=== PATIENT | male | born 1960 | race Caucasian/White ===

== ENCOUNTER → 2017-07-11 | Day surgery (SDC) | payer BC ==
[~2017-07-11] MED LIST: ASPI-630 PO; HYDROmorphone 2 MG/ML VIAL IV PRN; IV RINGERS,LACTATED 1000ML 1,000 ML IV SCH; LIDOCAINE 1% PF 2 ML VIAL. ID PRN; LIDOCAINE 2% PF Vial for OR 5 ML VIAL. ONE; MORPHINE SULFATE 2 MG/ML DISP.SYRIN. IV PRN; ONDANSETRON PF 4 MG/2 ML VIAL. IV PRN; PROCHLORPERAZINE 10 MG/2 ML VIAL. IV PRN; PROPOFOL 40 ML IV ONE; fentaNYL PF VIAL 100 MCG/2 ML VIAL IV PRN
[2017-07-11 09:10] VITALS: BP 134/90
--- NOTE | 2017-07-11 12:53 | CONS ---
DATE OF CONSULTATION: 07/11/2017 DATE OF SERVICE: 07/11/2017 REFERRING PHYSICIAN: Dr. hTor Moe. HISTORY OF PRESENT ILLNESS: A 56-year-old male whose past medical history is significant for colonic polyps and asthma, seen for surveillance exam. He had a history of polyps some 5 years ago, which were hyperplastic in nature and he is here today for surveillance exam. Bowel habits are regular without diarrhea or constipation. No melena or hematochezia. He has no additional complaints. FAMILY HISTORY: Unrevealing for colon cancer. PAST MEDICAL HISTORY: Asthma, history of colonic polyps. ALLERGIES: None. MEDICATIONS: Aspirin 81 mg daily. FAMILY AND SOCIAL HISTORY: He is a social drinker, a former smoker. PAST SURGICAL HISTORY: Status post eye surgery, right leg fracture. REVIEW OF SYSTEMS: Per records. PHYSICAL EXAMINATION: GENERAL: Reveals a well-nourished, well-developed male who is alert, conversant, in no acute distress. VITAL SIGNS: Temperature 97.1, pulse 96, respirations 20. HEENT: Normocephalic and atraumatic head. Pupils and extraocular movements not tested. Sclerae anicteric. NECK: Supple. LUNGS: Clear. CARDIOVASCULAR: Reveals S1, S2 without S3, S4 or appreciable murmur. ABDOMEN: Soft abdomen, normal bowel sounds, without appreciable hepatosplenomegaly. EXTREMITIES: Reveals no cyanosis, clubbing or edema. IMPRESSION: History of colonic polyps. Surveillance exam is warranted at this time. Risks and benefits of procedure have been discussed with the patient and he is willing to proceed. REJI ROTH MD DR: MARE/luis m JOB#: [id number] / [id number]
--- NOTE | 2017-07-12 13:21 | PATHOLOGY ---
PATHOLOGY REPORT * * * * * * * * FINAL DIAGNOSIS: A. Colorectal biopsies, rectal polyps: - Hyperplastic polyps. B. Colon biopsies, sigmoid colon polyps: - Hyperplastic polyps. (JPM:pit; 07/12/2017) COMMENT: There are no adenomatous changes or evidence of malignancy. (JPM:pit; 07/12/2017) REPORT ELECTRONICALLY SIGNED BY: Giovanny Randolph M.D. DATE/TIME: 07/12/2017 13:20 * * * * * * * * GROSS PATHOLOGY: A. Received in formalin labeled "Spencer Caruso, rectal polyps," are 4 segments of antony soft tissue measuring 1.4 x 0.6 x 0.5 cm in aggregate dimensions and ranging from 0.2 to 0.6 cm in maximum dimension. The specimen is submitted entirely in cassette A1. B. Received in formalin labeled "Spencer Caruso, sigmoid colon polyps," are 4 segments of antony soft tissue measuring 1.1 x 0.6 x 0.4 cm in aggregate dimensions and ranging from 0.2 to 0.4 cm in maximum dimension. The specimen is submitted entirely in cassette C1. (TSD; 07/11/2017) INITIAL CPT CODE(S): A; 10577 B; 14329 Professional services performed by [facility] [place] [address] Technical services performed by [facility] at [address] [place] [address] [address] [address]. SPECIMEN(S) RECEIVED: A.Rectal polyps B.Sigmoid colon polyps CLINICAL HISTORY: Screening PATIENT: SPENCER CARUSO /AGE: 312/08/1960 (Age: 56) PATIENT #: [id number] ALT CASE #: SPECIMEN COLLECTION DATE: 07/11/2017 SPECIMEN RECEIVED DATE: 07/11/2017 [facility] - [id number] [place] [address] - PHONE: [phone] * * * END OF REPORT * * *
== END | disposition home or self-care (01) ==
LOC: ENDOS 07:15
PROVIDERS: ATTEND Internal Medicine Gastroenterology
DX: Z09 Encounter for follow-up examination after completed treatment for conditions other than malignant neoplasm (principal); Z86.010 Personal history of colon polyps; K63.5 Polyp of colon; K57.30 Diverticulosis of large intestine without perforation or abscess without bleeding; K64.0 First degree hemorrhoids; M06.9 Rheumatoid arthritis, unspecified; J45.909 Unspecified asthma, uncomplicated; M19.91 Primary osteoarthritis, unspecified site; Z87.39 Personal history of other diseases of the musculoskeletal system and connective tissue
CPT/HCPCS: 45380; 45385; 88305; J2704; J2001

== ENCOUNTER → 2022-01-19 | Outpatient (CLI) | payer BC ==
[2017-07-11 09:10] VITALS: BP 134/90
[~2022-01-19] MED LIST changes: -HYDROmorphone 2 MG/ML VIAL IV PRN; -IV RINGERS,LACTATED 1000ML 1,000 ML IV SCH; -LIDOCAINE 1% PF 2 ML VIAL. ID PRN; -LIDOCAINE 2% PF Vial for OR 5 ML VIAL. ONE; -MORPHINE SULFATE 2 MG/ML DISP.SYRIN. IV PRN; -ONDANSETRON PF 4 MG/2 ML VIAL. IV PRN; -PROCHLORPERAZINE 10 MG/2 ML VIAL. IV PRN; -PROPOFOL 40 ML IV ONE; -fentaNYL PF VIAL 100 MCG/2 ML VIAL IV PRN
--- NOTE | 2022-01-19 11:32 | KCIC ---
EXAM: Right knee, 3 views. HISTORY: Pain and swelling. COMPARISON: None. FINDINGS: 3 views of the right knee are obtained. There is mild unremarkable renal spurring. There is no fracture, dislocation or subluxation. There is no joint effusion. IMPRESSION: Mild tricompartmental osteoarthritis of the right knee. Electronically signed by: Melania Vegas MD (01/19/2022 11:29 AM) [id number]
== END ==
LOC: KCIC 10:59
PROVIDERS: ATTEND Family Medicine
DX: M17.11 Unilateral primary osteoarthritis, right knee (principal)
CPT/HCPCS: 73562